=== PATIENT | male | born 1955 | race Caucasian/White ===

== ENCOUNTER 2017-02-06 05:54 | Emergency (ER) | payer OTHER ==
[~2017-02-06] VITALS: Ht 172.7 cm; Wt 118.6 kg
[2017-02-06 06:41] LABS: EOSINOPHIL (%) 8.6 % (0-5); EOSINOPHIL COUNT 0.4 K/uL (0-0.3); HEMATOCRIT 29.9 % (38.0-50.0); IMMATURE GRANULOCYTE (%) 0.2 % (0.0-0.7); INSTRUMENT ABS NEUTROPHIL CT 1.6 K/uL; LYMPHOCYTE COUNT 1.4 K/uL (1.0-2.8); MCH 32.7 PG (29.0-34.0); MCHC 33.8 G/DL (30.0-36.0); MCV 96.8 FL (86-99); MEAN PLAT.VOLUME 12.6 uM^3 (9.0-12.4); MONOCYTE (%) 22.9 % (3-12); NEUTROPHIL (%) 36.5 % (45-76); NEUTROPHIL COUNT 1.6 K/uL (1.8-6.4); PLATELET COUNT 65 K/uL (156-360); RBC DIS.WIDTH-CV 16.8 % (11.8-14.6); RBC DIS.WIDTH-SD 59.1 % (39-53); RED BLOOD COUNT 3.09 M/uL (4.00-5.50); WHITE BLOOD COUNT 4.4 K/uL (4.1-10.2)
[2017-02-06 07:13] LABS: ANION GAP 5 MEQ/L (2-14); CHLORIDE 111 MEQ/L (99-109); MAGNESIUM 1.8 mg/dl (1.3-2.7); SAMPLE HEMOLYSIS CHECK 0; SAMPLE ICTERIC CHECK 1; SAMPLE LIPEMIA CHECK 0; SODIUM 141 MEQ/L (136-147); TOTAL BILIRUBIN 4.1 MG/DL (0.0-1.0)
[2017-02-06 07:18] LABS: ALKALINE PHOSPHATASE 124 IU/L (3-129); GFR ESTIMATE (CALCULATED) > 59 mL/min/; GLUCOSE 115 mg/dL (70-99); UREA NITROGEN (BUN) 13 mg/dL (9-23)
[2017-02-06 07:23] LABS: TROP-I INTERPRETATION NEGATIVE; TROPONIN-I 0.01 ng/mL (0.0-0.30)
[2017-02-06 09:56] VITALS: BP 138/79
== END 2017-02-06 10:09 ==
LOC: EME 05:54 → EDBD 05:54 → EME 05:54
PROVIDERS: Emergency Medicine
DX: K74.60 Unspecified cirrhosis of liver (principal); R60.0 Localized edema; E72.20 Disorder of urea cycle metabolism, unspecified; M54.2 Cervicalgia; W19.XXXA Unspecified fall, initial encounter; Y92.149 Unspecified place in prison as the place of occurrence of the external cause; B19.20 Unspecified viral hepatitis C without hepatic coma; K72.90 Hepatic failure, unspecified without coma; I10 Essential (primary) hypertension; I25.2 Old myocardial infarction; Z95.5 Presence of coronary angioplasty implant and graft; Z87.891 Personal history of nicotine dependence
CPT/HCPCS: 70450; 71010; 72125; 80053; 82140; 83735; 84484; 85025; 93005; 99281; 99285; J1940

== ENCOUNTER 2017-03-18 19:56 | Emergency (ER) | payer OTHER ==
[~2017-03-18] VITALS: Ht 170.2 cm; Wt 123.0 kg
[2017-03-18] MEDS ORDERED: ENSURE LIQUID237 ML PO (20:26)
[2017-03-18] MEDS ORDERED: XIFAXAN550 MG PO (20:27)
[2017-03-18] MEDS ORDERED: [UNRECOGNIZED DRUG - OTHER] TP (20:29)
[2017-03-18] MEDS ORDERED: OMEPRAZOLE40 M1 PO (20:30)
[2017-03-18] MEDS ORDERED: LASIX40 MG PO (20:30)
[2017-03-18] MEDS ORDERED: ENULOSE10 GM/15 M PO (20:30)
[2017-03-18] MEDS ORDERED: FOLIC ACID1 MG PO (20:31)
[2017-03-18] MEDS ORDERED: SPIRONOLACTONE50 MG PO (20:31)
[2017-03-18] MEDS ORDERED: INDERAL10 MG PO (20:32)
[2017-03-18] MEDS ORDERED: ZINC SULFATE220 MG PO (20:32)
[2017-03-18 20:38] LABS: EOSINOPHIL (%) 6.9 % (0-5); EOSINOPHIL COUNT 0.2 K/uL (0-0.3); HEMATOCRIT 28.2 % (38.0-50.0); IMMATURE GRANULOCYTE (%) 0.3 % (0.0-0.7); INSTRUMENT ABS NEUTROPHIL CT 1.2 K/uL; LYMPHOCYTE COUNT 1.3 K/uL (1.0-2.8); MCH 32.6 PG (29.0-34.0); MCHC 33.3 G/DL (30.0-36.0); MCV 97.9 FL (86-99); MEAN PLAT.VOLUME 12.5 uM^3 (9.0-12.4); MONOCYTE (%) 15.6 % (3-12); MONOCYTE COUNT 0.5 K/uL (0-0.8); NEUTROPHIL (%) 36.5 % (45-76); NEUTROPHIL COUNT 1.2 K/uL (1.8-6.4); RBC DIS.WIDTH-SD 64.7 % (39-53); RED BLOOD COUNT 2.88 M/uL (4.00-5.50); WHITE BLOOD COUNT 3.3 K/uL (4.1-10.2)
[2017-03-18 20:39] LABS: PLATELET COUNT 97 K/uL (156-360)
[2017-03-18 20:43] LABS: INTER. NORMALIZED RATIO 1.6; PROTHROMBIN TIME 18.4 SEC (10.2-12.9)
[2017-03-18 20:46] LABS: PTT 39.3 SEC (25-37)
[2017-03-18 20:50] LABS: CHLORIDE 110 mEq/L (99-109); POTASSIUM 3.4 mEq/L (3.7-5.4); SODIUM 140 mEq/L (136-147)
[2017-03-18 20:52] LABS: GLUCOSE 215 mg/dL (70-99)
[2017-03-18 20:53] LABS: SERUM ETHYL ALCOHOL < 10 mg/dL
[2017-03-18 20:54] LABS: ANION GAP 2 MEQ/L (2-14); TOTAL BILIRUBIN 4.7 mg/dL (0.0-1.0)
[2017-03-18 20:56] LABS: ALKALINE PHOSPHATASE 139 IU/L (3-129); GFR ESTIMATE (CALCULATED) > 59 mL/min/; LIPASE 33 U/L (1.0-51.0)
[2017-03-18 20:57] LABS: UREA NITROGEN (BUN) 9 mg/dL (9-23)
[2017-03-18 21:00] LABS: TROP-I INTERPRETATION NEGATIVE; TROPONIN-I < 0.01 ng/mL (0.0-0.30)
[2017-03-19 01:53] VITALS: BP 133/84
[2017-03-19 01:57] LABS: ADD MIUA? YES; BILIRUBIN NEGATIVE; BLOOD NEGATIVE; COLOR AMBER ((YELLOW)); GLUCOSE (STRIP) NEGATIVE; KETONES NEGATIVE; LEUKOCYTES TRACE; NITRITE NEGATIVE; PROTEIN (STRIP) 30
[2017-03-19 02:05] LABS: AMPHETAMINE NEGATIVE (500 ng/mL); BARBITURATES NEGATIVE (200 ng/mL); BENZODIAZEPINES NEGATIVE (150 ng/mL); COCAINE NEGATIVE (150 ng/mL); INTERNAL CONTROLS VALID? YES; METHADONE NEGATIVE (200 ng/mL); METHAMPHETAMINE NEGATIVE (500 ng/mL); OPIATES (MORPHINE) NEGATIVE (100 ng/mL); OXYCODONE NEGATIVE (100 ng/mL); PHENCYCLIDINE NEGATIVE (25 ng/mL); PROPOXYPHENE NEGATIVE (300 ng/mL); THC CANNABINOIDS NEGATIVE (50 ng/mL); TRICYCLIC ANTIDEPRESSANTS NEGATIVE (300 ng/mL)
[2017-03-19 02:14] LABS: RED BLOOD CELLS 0-5 /HPF (0-5)
[2017-03-19 02:15] LABS: BACTERIA 3+ /HPF; CASTS NONE SEEN /LPF; CRYSTALS NONE SEEN; EPITHELIAL CELLS RARE /HPF; MUCUS NONE SEEN /LPF; UCUL ADDED? YES; WHITE BLOOD CELLS 15-20 /HPF (0-5)
== END 2017-03-19 02:09 | disposition short-term general hospital (02) ==
LOC: EME → EDBD 19:56 → EME 03-19 02:09
PROVIDERS: Emergency Medicine
DX: D64.9 Anemia, unspecified (principal); R53.1 Weakness; R20.2 Paresthesia of skin; M54.2 Cervicalgia; W19.XXXA Unspecified fall, initial encounter; Y92.143 Cell of prison as the place of occurrence of the external cause; I10 Essential (primary) hypertension; I25.2 Old myocardial infarction; K72.90 Hepatic failure, unspecified without coma; B19.20 Unspecified viral hepatitis C without hepatic coma; K74.60 Unspecified cirrhosis of liver; I25.10 Atherosclerotic heart disease of native coronary artery without angina pectoris; Z95.5 Presence of coronary angioplasty implant and graft; Z87.891 Personal history of nicotine dependence
CPT/HCPCS: 70450; 70496; 70498; 72125; 80048; 80053; 81003; 82140; 82150; 83690; 84484; 85025; 85610; 85730; 86850; 86900; 86901; 87077; 87086; 87186; 93005; 99281; 99285; G0480

== ENCOUNTER 2017-05-02 21:19 | Emergency (ER) | payer OTHER ==
[~2017-05-02] VITALS: Ht 172.7 cm; Wt 123.0 kg
[~2017-05-02 21:19] MED LIST: ENSURE LIQUID237 ML PO; ENULOSE10 GM/15 M PO; FOLIC ACID1 MG PO; INDERAL10 MG PO; LASIX40 MG PO; OMEPRAZOLE40 M1 PO; SPIRONOLACTONE50 MG PO; XIFAXAN550 MG PO; ZINC SULFATE220 MG PO; [UNRECOGNIZED DRUG - OTHER] TP
[2017-05-02 21:54] LABS: HEMATOCRIT 35.7 % (38.0-50.0); MCH 32.7 PG (29.0-34.0); MCHC 33.6 G/DL (30.0-36.0); MCV 97.3 FL (86-99); PLATELET COUNT 71 K/uL (156-360); RBC DIS.WIDTH-SD 67.9 % (39-53); RED BLOOD COUNT 3.67 M/uL (4.00-5.50); WHITE BLOOD COUNT 4.7 K/uL (4.1-10.2)
[2017-05-02 21:57] LABS: CHLORIDE 111 mEq/L (99-109); POTASSIUM 4.2 mEq/L (3.7-5.4); SODIUM 142 mEq/L (136-147)
[2017-05-02 21:58] LABS: GLUCOSE 118 mg/dL (70-99)
[2017-05-02 22:02] LABS: CREATININE 0.6 mg/dL (0.6-1.3); GFR ESTIMATE (CALCULATED) > 59 mL/min/ (58.99-99999)
[2017-05-02 22:03] LABS: UREA NITROGEN (BUN) 12 mg/dL (9-23)
[2017-05-02 22:11] LABS: BASE EXCESS 2.5 mEq/L (-3 to +3); BICARBONATE 26.3 mEq/L (22-26); COMMENTS - BLOOD GASES C+; DEVICE RA; METHEMOGLOBIN 0.8 % (0-1.5); PCO2 37 mm Hg (35-45); PO2 93 mm Hg (80-100); SITE LR; TOTAL RESP RATE 16 resp/min; pH 7.46 (7.35-7.45)
[2017-05-02 22:20] LABS: INTER. NORMALIZED RATIO 1.7
[2017-05-02 22:23] LABS: PTT 41.9 SEC (25-37)
[2017-05-02 22:34] LABS: TROP-I INTERPRETATION NEGATIVE; TROPONIN-I 0.01 ng/mL (0.0-0.30)
[2017-05-02] MEDS ORDERED: PRILOSEC20 MG PO (22:51)
[2017-05-02] MEDS ORDERED: [UNRECOGNIZED DRUG - OTHER] TP (22:53)
[2017-05-02] MEDS ORDERED: [UNRECOGNIZED DRUG - OTHER] TP (22:53)
[2017-05-02 23:50] LABS: ALBUMIN 2.7 g/dL (3.2-4.8)
[2017-05-02 23:53] LABS: TOTAL PROTEIN 5.2 g/dL (6.4-8.3)
[2017-05-02 23:55] LABS: TOTAL BILIRUBIN 6.5 mg/dL (0.0-1.0)
[2017-05-02 23:56] LABS: ALKALINE PHOSPHATASE 140 IU/L (3-129)
[2017-05-02 23:58] LABS: AST (GOT) 82 IU/L (2-34); DIRECT BILIRUBIN 2.6 mg/dL (0.0-0.3)
[2017-05-02 23:59] LABS: ALT (GPT) 55 IU/L (3-49); LIPASE 29 U/L (1.0-51.0)
[2017-05-03 05:52] VITALS: BP 104/63
== END 2017-05-03 06:14 | disposition designated cancer center or children's hospital, planned readmission (85) ==
LOC: EME 21:19
PROVIDERS: Emergency Medicine
DX: K72.01 Acute and subacute hepatic failure with coma (principal); R65.10 Systemic inflammatory response syndrome (SIRS) of non-infectious origin without acute organ dysfunction; R74.8 Abnormal levels of other serum enzymes; R41.82 Altered mental status, unspecified; T68.XXXA Hypothermia, initial encounter; I51.7 Cardiomegaly; J90 Pleural effusion, not elsewhere classified; R60.0 Localized edema; K72.90 Hepatic failure, unspecified without coma; R94.31 Abnormal electrocardiogram [ECG] [EKG]; I10 Essential (primary) hypertension; K74.60 Unspecified cirrhosis of liver; B19.20 Unspecified viral hepatitis C without hepatic coma; I25.2 Old myocardial infarction; W19.XXXA Unspecified fall, initial encounter; Y92.149 Unspecified place in prison as the place of occurrence of the external cause; Z87.891 Personal history of nicotine dependence; Z96.89 Presence of other specified functional implants; Z95.5 Presence of coronary angioplasty implant and graft; Z91.14 Patient's other noncompliance with medication regimen
CPT/HCPCS: 36600; 70450; 71045; 71250; 72125; 74176; 80048; 80076; 81003; 82140; 82803; 83605; 83690; 84484; 85027; 85610; 85730; 87040; 93005; 99281; 99285; J2543; J3370; J7030

== ENCOUNTER 2017-06-08 10:32 | Emergency (ER) | payer OTHER ==
[~2017-06-08] VITALS: Ht 188 cm; Wt 109.8 kg
[~2017-06-08 10:32] MED LIST changes: +PRILOSEC20 MG PO; +[UNRECOGNIZED DRUG - OTHER] TP
[2017-06-08 11:05] LABS: INTER. NORMALIZED RATIO 1.7
[2017-06-08 11:07] LABS: PTT 39.2 SEC (25-37)
[2017-06-08 11:13] LABS: ALBUMIN 2.6 g/dL (3.2-4.8); CHLORIDE 113 mEq/L (99-109); POTASSIUM 3.8 mEq/L (3.7-5.4); SODIUM 141 mEq/L (136-147)
[2017-06-08 11:15] LABS: GLUCOSE 129 mg/dL (70-99); TOTAL PROTEIN 4.4 g/dL (6.4-8.3)
[2017-06-08 11:17] LABS: BASOPHIL (%) 0.6 % (0-1); EOSINOPHIL (%) 7.8 % (0-5); EOSINOPHIL COUNT 0.3 K/uL (0-0.3); HEMATOCRIT 26.7 % (38.0-50.0); HEMOGLOBIN 9.1 G/DL (12.5-16.6); IMMATURE GRANULOCYTE (%) 0.3 % (0.0-0.7); LYMPHOCYTE (%) 36.9 % (15-42); LYMPHOCYTE COUNT 1.2 K/uL (1.0-2.8); MCH 32.9 PG (29.0-34.0); MCHC 34.1 G/DL (30.0-36.0); MCV 96.4 FL (86-99); MONOCYTE (%) 17.4 % (3-12); MONOCYTE COUNT 0.6 K/uL (0-0.8); NEUTROPHIL COUNT 1.2 K/uL (1.8-6.4); RBC DIS.WIDTH-CV 18.3 % (11.8-14.6); RBC DIS.WIDTH-SD 61.9 % (39-53); RED BLOOD COUNT 2.77 M/uL (4.00-5.50); TOTAL BILIRUBIN 3.9 mg/dL (0.0-1.0); WHITE BLOOD COUNT 3.3 K/uL (4.1-10.2)
[2017-06-08 11:19] LABS: ALKALINE PHOSPHATASE 171 IU/L (3-129); CREATININE 0.6 mg/dL (0.6-1.3); GFR ESTIMATE (CALCULATED) > 59 mL/min/ (58.99-99999)
[2017-06-08 11:20] LABS: AST (GOT) 50 IU/L (2-34); UREA NITROGEN (BUN) 12 mg/dL (9-23)
[2017-06-08 11:22] LABS: ALT (GPT) 29 IU/L (3-49); CREATINE KINASE 158 IU/L (1-294); LIPASE 19 U/L (1.0-51.0); TOTAL CK 158 IU/L (1-294)
[2017-06-08 11:24] LABS: TROP-I INTERPRETATION NEGATIVE; TROPONIN-I 0.02 ng/mL (0.0-0.30)
[2017-06-08 11:28] LABS: CK-MB 5.2 ng/mL (0.0-4.9); CKMB RELATIVE INDEX 3.3 (0.0-3.9)
[2017-06-08 12:12] LABS: PLAT.SUFFICIENCY DECREASED
[2017-06-08 13:52] LABS: PLATELET COUNT 49 K/uL (156-360)
[2017-06-08 15:48] VITALS: BP 138/57
== END 2017-06-08 15:48 | disposition short-term general hospital (02) ==
LOC: EME 10:32
PROVIDERS: Emergency Medicine
DX: K72.90 Hepatic failure, unspecified without coma (principal); R41.82 Altered mental status, unspecified; K74.60 Unspecified cirrhosis of liver; B19.20 Unspecified viral hepatitis C without hepatic coma; I10 Essential (primary) hypertension; I25.2 Old myocardial infarction; Z95.5 Presence of coronary angioplasty implant and graft; Z87.891 Personal history of nicotine dependence
CPT/HCPCS: 70450; 71045; 80047; 80053; 82140; 82550; 82553; 83605; 83690; 84484; 85025; 85610; 85730; 87502; 93005; 99281; 99285

== ENCOUNTER 2017-07-14 15:35 | Inpatient (IN) | payer OTHER ==
[~2017-07-14] VITALS: Ht 172.7 cm; Wt 94.1 kg
[2017-07-14 16:27] LABS: BASOPHIL (%) 0.6 % (0-1); EOSINOPHIL (%) 7.4 % (0-5); EOSINOPHIL COUNT 0.2 K/uL (0-0.3); HEMATOCRIT 27.8 % (38.0-50.0); HEMOGLOBIN 9.6 G/DL (12.5-16.6); LYMPHOCYTE (%) 34.5 % (15-42); LYMPHOCYTE COUNT 1.1 K/uL (1.0-2.8); MCHC 34.5 G/DL (30.0-36.0); MCV 98.6 FL (86-99); MONOCYTE (%) 16.1 % (3-12); MONOCYTE COUNT 0.5 K/uL (0-0.8); NEUTROPHIL (%) 41.4 % (45-76); NEUTROPHIL COUNT 1.3 K/uL (1.8-6.4); PLATELET COUNT 57 K/uL (156-360); RBC DIS.WIDTH-CV 19.8 % (11.8-14.6); RBC DIS.WIDTH-SD 70.8 % (39-53); RED BLOOD COUNT 2.82 M/uL (4.00-5.50); WHITE BLOOD COUNT 3.1 K/uL (4.1-10.2)
[2017-07-14 16:36] LABS: INTER. NORMALIZED RATIO 1.5
[2017-07-14 16:38] LABS: ALBUMIN 2.7 g/dL (3.2-4.8); CHLORIDE 113 mEq/L (99-109); MAGNESIUM 1.6 mg/dL (1.3-2.7); POTASSIUM 4.3 mEq/L (3.7-5.4); SODIUM 142 mEq/L (136-147)
[2017-07-14 16:39] LABS: PTT 38.7 SEC (25-37)
[2017-07-14 16:40] LABS: GLUCOSE 124 mg/dL (70-99); TOTAL PROTEIN 4.9 g/dL (6.4-8.3)
[2017-07-14 16:42] LABS: TOTAL BILIRUBIN 4.1 mg/dL (0.0-1.0)
[2017-07-14 16:43] LABS: SERUM ETHYL ALCOHOL < 10 mg/dL
[2017-07-14 16:44] LABS: CREATININE 0.7 mg/dL (0.6-1.3); GFR ESTIMATE (CALCULATED) > 59 mL/min/ (58.99-99999)
[2017-07-14 16:45] LABS: ALKALINE PHOSPHATASE 185 IU/L (3-129); AST (GOT) 59 IU/L (2-34)
[2017-07-14 16:46] LABS: UREA NITROGEN (BUN) 9 mg/dL (9-23)
[2017-07-14 16:47] LABS: SALICYLATE < 5.0 MG/DL (15-30)
[2017-07-14 16:48] LABS: ACETAMINOPHEN (TYLENOL) < 10 mcg/mL (10-30); ALT (GPT) 32 IU/L (3-49); LIPASE 24 U/L (1.0-51.0)
[2017-07-14 16:49] LABS: CKMB RELATIVE INDEX 3.3 (0.0-3.9); CREATINE KINASE 182 IU/L (1-294); TOTAL CK 182 IU/L (1-294); TROP-I INTERPRETATION NEGATIVE; TROPONIN-I < 0.01 ng/mL (0.0-0.30)
[2017-07-14] MEDS ORDERED: MAGNESIUM400 M1 PO (17:30)
[2017-07-14] MEDS ORDERED: DAILY VITAMIN1 EAC4 PO (17:30)
[2017-07-14 17:55] LABS: APPEARANCE SL.HAZY ((CLEAR)); BILIRUBIN NEGATIVE; BLOOD NEGATIVE; COLOR YELLOW ((YELLOW)); GLUCOSE (STRIP) NEGATIVE; KETONES NEGATIVE; LEUKOCYTES TRACE; NITRITE NEGATIVE; PROTEIN (STRIP) NEGATIVE; UROBILINOGEN 0.2 MG/DL (0.2-1.0)
[2017-07-14 18:03] LABS: BACTERIA RARE /HPF; EPITHELIAL CELLS NONE SEEN /HPF; MUCUS TRACE /LPF; RED BLOOD CELLS 0-5 /HPF (0-5); UCUL ADDED? YES
[2017-07-14 22:46] VITALS: BP 151/67
[2017-07-15] VITALS: BP 147/63
[2017-07-15 04:00] VITALS: BP 140/62
[2017-07-15 06:43] LABS: INTER. NORMALIZED RATIO 1.7
[2017-07-15 07:02] LABS: ALBUMIN 2.4 G/DL (3.2-4.8); ALKALINE PHOSPHATASE 118 IU/L (3-129); ALT (GPT) 23 IU/L (3-49); AST (GOT) 54 IU/L (2-34); CHLORIDE 113 MEQ/L (99-109); CREATININE 0.5 MG/DL (0.6-1.3); GFR ESTIMATE (CALCULATED) > 59 mL/min/ (58.99-99999); GLUCOSE 155 mg/dL (70-99); POTASSIUM 4.1 MEQ/L (3.7-5.4); SODIUM 141 MEQ/L (136-147); TOTAL BILIRUBIN 3.8 MG/DL (0.0-1.0); TOTAL PROTEIN 4.1 G/DL (6.4-8.3); UREA NITROGEN (BUN) 9 mg/dL (9-23)
[2017-07-15 07:04] LABS: HEMATOCRIT 25.7 % (38.0-50.0); HEMOGLOBIN 8.6 G/DL (12.5-16.6); MCH 33.2 PG (29.0-34.0); MCHC 33.5 G/DL (30.0-36.0); MCV 99.2 FL (86-99); PLATELET COUNT 52 K/uL (156-360); RBC DIS.WIDTH-CV 20.1 % (11.8-14.6); RED BLOOD COUNT 2.59 M/uL (4.00-5.50); WHITE BLOOD COUNT 3.1 K/uL (4.1-10.2)
[2017-07-15 07:50] VITALS: BP 116/60
[2017-07-15 12:20] VITALS: BP 144/67
[2017-07-15 15:27] VITALS: BP 127/82
[2017-07-15 19:55] VITALS: BP 164/72
[2017-07-16] VITALS (7 sets, daily range): BP systolic 126–154; BP diastolic 59–72
[2017-07-16 06:32] LABS: HEMATOCRIT 25.5 % (38.0-50.0); HEMOGLOBIN 8.6 G/DL (12.5-16.6); MCH 33.5 PG (29.0-34.0); MCHC 33.7 G/DL (30.0-36.0); MCV 99.2 FL (86-99); PLATELET COUNT 59 K/uL (156-360); RBC DIS.WIDTH-CV 19.7 % (11.8-14.6); RBC DIS.WIDTH-SD 70.9 % (39-53); RED BLOOD COUNT 2.57 M/uL (4.00-5.50); WHITE BLOOD COUNT 3.8 K/uL (4.1-10.2)
[2017-07-17 04:17] VITALS: BP 131/68
[2017-07-17 07:21] VITALS: BP 120/67
[2017-07-17 16:22] VITALS: BP 138/70
[2017-07-18] VITALS: BP 129/63
[2017-07-18 07:15] VITALS: BP 131/62
[2017-07-18 10:06] VITALS: BP 133/75
[2017-07-18] MEDS ORDERED: AMOX TR-K CLV1 EAC4 PO (11:17)
== END 2017-07-18 13:06 | DRG 441 ==
LOC: EME 15:35 → EDOF 17:36 → 5SOUTH 17:36 → ENRESERV 17:41 → 5SOUTH 22:20
PROVIDERS: Emergency Medicine; Internal Medicine; Physician Assistant Medical
DX: K72.10 Chronic hepatic failure without coma (principal); R00.1 Bradycardia, unspecified; N39.0 Urinary tract infection, site not specified; G93.41 Metabolic encephalopathy; B95.2 Enterococcus as the cause of diseases classified elsewhere; B96.89 Other specified bacterial agents as the cause of diseases classified elsewhere; D69.6 Thrombocytopenia, unspecified; K76.9 Liver disease, unspecified; D63.8 Anemia in other chronic diseases classified elsewhere; D69.59 Other secondary thrombocytopenia; E66.01 Morbid (severe) obesity due to excess calories; I25.10 Atherosclerotic heart disease of native coronary artery without angina pectoris; I10 Essential (primary) hypertension; G89.29 Other chronic pain; R27.8 Other lack of coordination; K74.69 Other cirrhosis of liver; Z95.5 Presence of coronary angioplasty implant and graft; R32 Unspecified urinary incontinence; K21.9 Gastro-esophageal reflux disease without esophagitis; E83.51 Hypocalcemia; E87.8 Other disorders of electrolyte and fluid balance, not elsewhere classified; Z91.19 Patient's noncompliance with other medical treatment and regimen; Z87.891 Personal history of nicotine dependence; Z91.14 Patient's other noncompliance with medication regimen; I25.2 Old myocardial infarction; Z68.31 Body mass index [BMI] 31.0-31.9, adult; E88.09 Other disorders of plasma-protein metabolism, not elsewhere classified; B19.20 Unspecified viral hepatitis C without hepatic coma; D61.818 Other pancytopenia
CPT/HCPCS: 71045; 76705; 80053; 81003; 82140; 82550; 82553; 83605; 83690; 83735; 84484; 85025; 85027; 85610; 85730; 87077; 87086; 87186; 93005; 99281; 99285; G0480; J2270; J2405

== ENCOUNTER 2017-08-06 15:49 | Emergency (ER) | payer OTHER ==
[~2017-08-06] VITALS: Ht 172.7 cm; Wt 84.1 kg
[~2017-08-06 15:49] MED LIST changes: +AMOX TR-K CLV1 EAC4 PO; +DAILY VITAMIN1 EAC4 PO; +MAGNESIUM400 M1 PO
[2017-08-06 16:24] LABS: HEMATOCRIT 24.9 % (38.0-50.0); HEMOGLOBIN 8.3 G/DL (12.5-16.6); MCH 33.7 PG (29.0-34.0); MCHC 33.3 G/DL (30.0-36.0); MCV 101.2 FL (86-99); PLATELET COUNT 59 K/uL (156-360); RBC DIS.WIDTH-CV 17.8 % (11.8-14.6); RBC DIS.WIDTH-SD 66.5 % (39-53); RED BLOOD COUNT 2.46 M/uL (4.00-5.50); WHITE BLOOD COUNT 3.7 K/uL (4.1-10.2)
[2017-08-06 16:31] LABS: INTER. NORMALIZED RATIO 1.6
[2017-08-06 16:34] LABS: PTT 42.5 SEC (25-37)
[2017-08-06 16:34] LABS: ALBUMIN 2.5 g/dL (3.2-4.8); CHLORIDE 113 mEq/L (99-109); POTASSIUM 4.4 mEq/L (3.7-5.4); SODIUM 142 mEq/L (136-147)
[2017-08-06 16:37] LABS: GLUCOSE 139 mg/dL (70-99); TOTAL PROTEIN 4.5 g/dL (6.4-8.3)
[2017-08-06 16:39] LABS: TOTAL BILIRUBIN 3.1 mg/dL (0.0-1.0)
[2017-08-06 16:40] LABS: ALKALINE PHOSPHATASE 178 IU/L (3-129); CREATININE 0.6 mg/dL (0.6-1.3); GFR ESTIMATE (CALCULATED) > 59 mL/min/ (58.99-99999)
[2017-08-06 16:41] LABS: UREA NITROGEN (BUN) 11 mg/dL (9-23)
[2017-08-06 16:42] LABS: AST (GOT) 51 IU/L (2-34)
[2017-08-06 16:43] LABS: ALT (GPT) 32 IU/L (3-49)
[2017-08-06 17:16] LABS: APPEARANCE CLEAR ((CLEAR)); BILIRUBIN NEGATIVE; BLOOD NEGATIVE; COLOR YELLOW ((YELLOW)); GLUCOSE (STRIP) NEGATIVE; KETONES NEGATIVE; LEUKOCYTES NEGATIVE; NITRITE NEGATIVE; PROTEIN (STRIP) NEGATIVE; SPECIFIC GRAVITY 1.008 (1.000-1.030); UCUL ADDED? NO
[2017-08-06 19:22] VITALS: BP 115/77
== END 2017-08-06 19:25 | disposition short-term general hospital (02) ==
LOC: EME 15:49
PROVIDERS: Emergency Medicine
DX: R79.89 Other specified abnormal findings of blood chemistry (principal); K72.90 Hepatic failure, unspecified without coma; B19.20 Unspecified viral hepatitis C without hepatic coma; K74.60 Unspecified cirrhosis of liver; D64.9 Anemia, unspecified; I10 Essential (primary) hypertension; G89.29 Other chronic pain; I25.2 Old myocardial infarction; Z95.5 Presence of coronary angioplasty implant and graft; Z87.891 Personal history of nicotine dependence
CPT/HCPCS: 71045; 80053; 81003; 82140; 85027; 85610; 85730; 93005; 99281; 99285

== ENCOUNTER 2017-08-15 19:17 | Emergency (ER) | payer OTHER ==
[~2017-08-15] VITALS: Ht 172.7 cm; Wt 104.8 kg
[2017-08-15 20:46] LABS: HEMATOCRIT 25.9 % (38.0-50.0); HEMOGLOBIN 8.7 G/DL (12.5-16.6); MCH 33.6 PG (29.0-34.0); MCHC 33.6 G/DL (30.0-36.0); PLATELET COUNT 65 K/uL (156-360); RBC DIS.WIDTH-CV 17.1 % (11.8-14.6); RBC DIS.WIDTH-SD 61.5 % (39-53); RED BLOOD COUNT 2.59 M/uL (4.00-5.50); WHITE BLOOD COUNT 4.3 K/uL (4.1-10.2)
[2017-08-15 20:57] LABS: ALBUMIN 2.4 g/dL (3.2-4.8); CHLORIDE 108 mEq/L (99-109); POTASSIUM 3.5 mEq/L (3.7-5.4); SODIUM 139 mEq/L (136-147)
[2017-08-15 20:59] LABS: GLUCOSE 123 mg/dL (70-99)
[2017-08-15 21:00] LABS: TOTAL PROTEIN 4.3 g/dL (6.4-8.3)
[2017-08-15 21:01] LABS: TOTAL BILIRUBIN 3.3 mg/dL (0.0-1.0)
[2017-08-15 21:02] LABS: SERUM ETHYL ALCOHOL < 10 mg/dL
[2017-08-15 21:03] LABS: ALKALINE PHOSPHATASE 172 IU/L (3-129); CREATININE 0.6 mg/dL (0.6-1.3); GFR ESTIMATE (CALCULATED) > 59 mL/min/ (58.99-99999)
[2017-08-15 21:04] LABS: UREA NITROGEN (BUN) 11 mg/dL (9-23)
[2017-08-15 21:05] LABS: AST (GOT) 49 IU/L (2-34); DIRECT BILIRUBIN 1.6 mg/dL (0.0-0.3)
[2017-08-15 21:06] LABS: ALT (GPT) 32 IU/L (3-49); LIPASE 42 U/L (1.0-51.0)
[2017-08-15 22:43] LABS: APPEARANCE CLEAR ((CLEAR)); BILIRUBIN NEGATIVE; BLOOD SMALL; COLOR YELLOW ((YELLOW)); GLUCOSE (STRIP) NEGATIVE; KETONES NEGATIVE; LEUKOCYTES MODERATE; NITRITE NEGATIVE; PROTEIN (STRIP) NEGATIVE; SPECIFIC GRAVITY 1.011 (1.000-1.030)
[2017-08-15 22:50] LABS: BACTERIA 1+ /HPF; EPITHELIAL CELLS RARE /HPF; MUCUS TRACE /LPF; WHITE BLOOD CELLS 30-40 /HPF (0-5)
[2017-08-15] MEDS ORDERED: BACTRIM,SEPT1 TABLET PO (23:38)
[2017-08-15 23:54] VITALS: BP 111/51
[2017-08-16 01:52] LABS: AMPHETAMINE NEGATIVE (500 ng/mL); BARBITURATES NEGATIVE (200 ng/mL); BENZODIAZEPINES NEGATIVE (150 ng/mL); BUPRENORPHINE NEGATIVE (10 ng/mL); COCAINE NEGATIVE (150 ng/mL); METHADONE NEGATIVE (200 ng/mL); METHAMPHETAMINE NEGATIVE (500 ng/mL); OPIATES (MORPHINE) NEGATIVE (100 ng/mL); OXYCODONE NEGATIVE (100 ng/mL); PHENCYCLIDINE NEGATIVE (25 ng/mL); PROPOXYPHENE NEGATIVE (300 ng/mL); THC CANNABINOIDS NEGATIVE (50 ng/mL); TRICYCLIC ANTIDEPRESSANTS NEGATIVE (300 ng/mL)
== END 2017-08-15 23:56 ==
LOC: EME 19:17
PROVIDERS: Emergency Medicine
DX: K72.90 Hepatic failure, unspecified without coma (principal); K74.60 Unspecified cirrhosis of liver; B19.20 Unspecified viral hepatitis C without hepatic coma; N39.0 Urinary tract infection, site not specified; I10 Essential (primary) hypertension; I25.2 Old myocardial infarction; Z95.5 Presence of coronary angioplasty implant and graft; Z87.891 Personal history of nicotine dependence; Z91.14 Patient's other noncompliance with medication regimen
CPT/HCPCS: 71045; 80053; 81003; 82140; 82248; 83690; 85027; 93005; 99281; 99285; G0480; J2405; J7030

== ENCOUNTER 2017-11-05 17:18 | Emergency (ER) | payer OTHER ==
[~2017-11-05] VITALS: Ht 177.8 cm; Wt 90.0 kg
[~2017-11-05 17:18] MED LIST changes: +BACTRIM,SEPT1 TABLET PO
[2017-11-05 18:04] LABS: BASOPHIL (%) 0.2 % (0-1); EOSINOPHIL (%) 4.6 % (0-5); EOSINOPHIL COUNT 0.2 K/uL (0-0.3); HEMATOCRIT 30.5 % (38.0-50.0); HEMOGLOBIN 10.7 G/DL (12.5-16.6); IMMATURE GRANULOCYTE (%) 0.2 % (0.0-0.7); LYMPHOCYTE (%) 22.3 % (15-42); LYMPHOCYTE COUNT 0.9 K/uL (1.0-2.8); MCH 33.6 PG (29.0-34.0); MCHC 35.1 G/DL (30.0-36.0); MCV 95.9 FL (86-99); MONOCYTE (%) 14.6 % (3-12); MONOCYTE COUNT 0.6 K/uL (0-0.8); NEUTROPHIL (%) 58.1 % (45-76); NEUTROPHIL COUNT 2.4 K/uL (1.8-6.4); PLATELET COUNT 58 K/uL (156-360); RBC DIS.WIDTH-CV 16.5 % (11.8-14.6); RBC DIS.WIDTH-SD 58.4 % (39-53); RED BLOOD COUNT 3.18 M/uL (4.00-5.50); WHITE BLOOD COUNT 4.1 K/uL (4.1-10.2)
[2017-11-05 18:14] LABS: ALBUMIN 2.8 g/dL (3.2-4.8); CHLORIDE 103 mEq/L (99-109); POTASSIUM 3.6 mEq/L (3.7-5.4); SODIUM 139 mEq/L (136-147)
[2017-11-05 18:17] LABS: GLUCOSE 158 mg/dL (70-99); TOTAL PROTEIN 5.2 g/dL (6.4-8.3)
[2017-11-05 18:18] LABS: TOTAL BILIRUBIN 4.3 mg/dL (0.0-1.0)
[2017-11-05 18:20] LABS: ALKALINE PHOSPHATASE 129 IU/L (3-129); CREATININE 0.7 mg/dL (0.6-1.3); GFR ESTIMATE (CALCULATED) > 59 mL/min/ (58.99-99999)
[2017-11-05 18:21] LABS: UREA NITROGEN (BUN) 17 mg/dL (9-23)
[2017-11-05 18:22] LABS: AST (GOT) 58 IU/L (2-34); DIRECT BILIRUBIN 1.7 mg/dL (0.0-0.3)
[2017-11-05 18:23] LABS: ACETAMINOPHEN (TYLENOL) < 10 mcg/mL (10-30); ALT (GPT) 33 IU/L (3-49)
[2017-11-05 18:24] LABS: LIPASE 53 U/L (1.0-51.0); TROP-I INTERPRETATION NEGATIVE; TROPONIN-I 0.01 ng/mL (0.0-0.30)
[2017-11-05 18:25] LABS: INTER. NORMALIZED RATIO 1.5
[2017-11-05 18:27] LABS: PTT 32.6 SEC (25-37)
[2017-11-05 21:36] VITALS: BP 154/62
== END 2017-11-05 21:36 | disposition home or self-care (01) ==
LOC: EME 17:18
PROVIDERS: Emergency Medicine
DX: R10.31 Right lower quadrant pain (principal); K72.90 Hepatic failure, unspecified without coma; K74.60 Unspecified cirrhosis of liver; I51.7 Cardiomegaly; R16.1 Splenomegaly, not elsewhere classified; N28.1 Cyst of kidney, acquired; Z96.89 Presence of other specified functional implants
CPT/HCPCS: 74177; 80048; 80076; 81003; 82140; 83605; 83690; 84484; 85025 91; 85610; 85730; 99281; 99285; G0480; J1200; J2405; J2765; J7030

== ENCOUNTER 2017-11-12 15:49 | Emergency (ER) | payer OTHER ==
[~2017-11-12] VITALS: Ht 170.2 cm; Wt 100.0 kg
[2017-11-12 16:56] LABS: BASOPHIL (%) 0.2 % (0-1); EOSINOPHIL (%) 2.6 % (0-5); EOSINOPHIL COUNT 0.1 K/uL (0-0.3); HEMATOCRIT 32.2 % (38.0-50.0); HEMOGLOBIN 11.1 G/DL (12.5-16.6); IMMATURE GRANULOCYTE (%) 0.2 % (0.0-0.7); LYMPHOCYTE (%) 21.5 % (15-42); LYMPHOCYTE COUNT 0.9 K/uL (1.0-2.8); MCH 33.2 PG (29.0-34.0); MCHC 34.5 G/DL (30.0-36.0); MCV 96.4 FL (86-99); MONOCYTE COUNT 0.6 K/uL (0-0.8); NEUTROPHIL (%) 62.5 % (45-76); NEUTROPHIL COUNT 2.7 K/uL (1.8-6.4); RBC DIS.WIDTH-CV 16.7 % (11.8-14.6); RBC DIS.WIDTH-SD 59.2 % (39-53); RED BLOOD COUNT 3.34 M/uL (4.00-5.50); WHITE BLOOD COUNT 4.2 K/uL (4.1-10.2)
[2017-11-12 17:02] LABS: PLATELET COUNT 76 K/uL (156-360)
[2017-11-12 17:22] LABS: CHLORIDE 105 mEq/L (99-109); POTASSIUM 4.3 mEq/L (3.7-5.4); SODIUM 143 mEq/L (136-147)
[2017-11-12 17:24] LABS: GLUCOSE 144 mg/dL (70-99); TOTAL PROTEIN 5.4 g/dL (6.4-8.3)
[2017-11-12 17:27] LABS: ALKALINE PHOSPHATASE 133 IU/L (3-129)
[2017-11-12 17:28] LABS: CREATININE 0.8 mg/dL (0.6-1.3); GFR ESTIMATE (CALCULATED) > 59 mL/min/ (58.99-99999)
[2017-11-12 17:29] LABS: AST (GOT) 53 IU/L (2-34); UREA NITROGEN (BUN) 20 mg/dL (9-23)
[2017-11-12 17:30] LABS: ALT (GPT) 30 IU/L (3-49)
[2017-11-12 17:31] LABS: LIPASE 11 U/L (1.0-51.0)
[2017-11-12 17:34] LABS: TROP-I INTERPRETATION NEGATIVE; TROPONIN-I < 0.01 ng/mL (0.0-0.30)
[2017-11-12 19:55] LABS: APPEARANCE CLEAR ((CLEAR)); BILIRUBIN NEGATIVE; BLOOD NEGATIVE; COLOR AMBER ((YELLOW)); GLUCOSE (STRIP) NEGATIVE; KETONES NEGATIVE; LEUKOCYTES TRACE; NITRITE NEGATIVE; PROTEIN (STRIP) 30; SPECIFIC GRAVITY 1.035 (1.000-1.030)
[2017-11-12 20:08] VITALS: BP 179/81
[2017-11-12 20:20] LABS: BACTERIA RARE /HPF; EPITHELIAL CELLS RARE /HPF; MUCUS 2+ /LPF; UCUL ADDED? YES; WHITE BLOOD CELLS 20-30 /HPF (0-5)
== END 2017-11-12 20:28 ==
LOC: EME 15:49
PROVIDERS: Emergency Medicine
DX: R10.84 Generalized abdominal pain (principal); G89.29 Other chronic pain; K74.60 Unspecified cirrhosis of liver; I10 Essential (primary) hypertension; I25.2 Old myocardial infarction; B19.20 Unspecified viral hepatitis C without hepatic coma; Z95.5 Presence of coronary angioplasty implant and graft; Z87.891 Personal history of nicotine dependence; Z90.49 Acquired absence of other specified parts of digestive tract
CPT/HCPCS: 71045; 74177; 80053; 81003; 82140; 83690; 84484; 85025; 87077; 87086; 87186; 93005; J2405; J3010; J7040

== ENCOUNTER 2017-11-18 16:46 | Emergency (ER) | payer OTHER ==
[~2017-11-18] VITALS: Ht 170.2 cm; Wt 106.7 kg
[2017-11-18 17:18] LABS: HEMATOCRIT 30.3 % (38.0-50.0); HEMOGLOBIN 10.7 G/DL (12.5-16.6); MCH 33.2 PG (29.0-34.0); MCHC 35.3 G/DL (30.0-36.0); MCV 94.1 FL (86-99); RBC DIS.WIDTH-CV 16.5 % (11.8-14.6); RBC DIS.WIDTH-SD 56.5 % (39-53); RED BLOOD COUNT 3.22 M/uL (4.00-5.50); WHITE BLOOD COUNT 4.3 K/uL (4.1-10.2)
[2017-11-18 17:25] LABS: INTER. NORMALIZED RATIO 1.6
[2017-11-18 17:27] LABS: ALBUMIN 2.9 g/dL (3.2-4.8); CHLORIDE 104 mEq/L (99-109); POTASSIUM 3.7 mEq/L (3.7-5.4); SODIUM 141 mEq/L (136-147)
[2017-11-18 17:30] LABS: GLUCOSE 124 mg/dL (70-99); TOTAL PROTEIN 5.3 g/dL (6.4-8.3)
[2017-11-18 17:31] LABS: TOTAL BILIRUBIN 4.2 mg/dL (0.0-1.0)
[2017-11-18 17:33] LABS: ALKALINE PHOSPHATASE 136 IU/L (3-129); CREATININE 0.9 mg/dL (0.6-1.3); GFR ESTIMATE (CALCULATED) > 59 mL/min/ (58.99-99999)
[2017-11-18 17:34] LABS: UREA NITROGEN (BUN) 16 mg/dL (9-23)
[2017-11-18 17:35] LABS: AST (GOT) 46 IU/L (2-34)
[2017-11-18 17:36] LABS: ALT (GPT) 27 IU/L (3-49)
[2017-11-18 17:37] LABS: LIPASE 31 U/L (1.0-51.0)
[2017-11-18 17:50] LABS: BASOPHIL (%) 0.5 % (0-1); EOSINOPHIL (%) 8.4 % (0-5); EOSINOPHIL COUNT 0.4 K/uL (0-0.3); HEMATOLOGY COMMENT 1 SN; IMMATURE GRANULOCYTE (%) 0.2 % (0.0-0.7); LYMPHOCYTE (%) 25.5 % (15-42); LYMPHOCYTE COUNT 1.1 K/uL (1.0-2.8); MONOCYTE (%) 17.1 % (3-12); MONOCYTE COUNT 0.7 K/uL (0-0.8); NEUTROPHIL (%) 48.3 % (45-76); NEUTROPHIL COUNT 2.1 K/uL (1.8-6.4); PLAT.SUFFICIENCY DECREASED; PLATELET COUNT UNABLE TO REPORT K/uL (156-360)
[2017-11-18] MEDS ORDERED: PROTONIX40 MG PO (19:53)
[2017-11-18 20:02] VITALS: BP 144/74
== END 2017-11-18 20:40 ==
LOC: EME 16:46
PROVIDERS: Emergency Medicine
DX: K25.9 Gastric ulcer, unspecified as acute or chronic, without hemorrhage or perforation (principal); R19.7 Diarrhea, unspecified; R11.2 Nausea with vomiting, unspecified; R06.02 Shortness of breath; K74.60 Unspecified cirrhosis of liver; R16.1 Splenomegaly, not elsewhere classified; N20.0 Calculus of kidney; I10 Essential (primary) hypertension; I25.2 Old myocardial infarction; Z95.5 Presence of coronary angioplasty implant and graft; Z86.19 Personal history of other infectious and parasitic diseases; Z87.891 Personal history of nicotine dependence
CPT/HCPCS: 71045; 74177; 80053; 83690; 85025; 85610; 99281; 99285; C9113; J2270; J2405; J7030

== ENCOUNTER 2017-12-06 16:21 | Emergency (ER) | payer OTHER ==
[~2017-12-06] VITALS: Ht 180.3 cm; Wt 101.8 kg
[~2017-12-06 16:21] MED LIST changes: +PROTONIX40 MG PO
[2017-12-06 17:23] LABS: INTER. NORMALIZED RATIO 1.6
[2017-12-06 17:31] LABS: ALBUMIN 2.9 g/dL (3.2-4.8); CHLORIDE 107 mEq/L (99-109); POTASSIUM 3.9 mEq/L (3.7-5.4); SODIUM 140 mEq/L (136-147)
[2017-12-06 17:33] LABS: GLUCOSE 138 mg/dL (70-99); TOTAL PROTEIN 5.6 g/dL (6.4-8.3)
[2017-12-06 17:37] LABS: ALKALINE PHOSPHATASE 129 IU/L (3-129); CREATININE 0.7 mg/dL (0.6-1.3); GFR ESTIMATE (CALCULATED) > 59 mL/min/ (58.99-99999)
[2017-12-06 17:38] LABS: UREA NITROGEN (BUN) 12 mg/dL (9-23)
[2017-12-06 17:39] LABS: AST (GOT) 55 IU/L (2-34)
[2017-12-06 17:40] LABS: ALT (GPT) 40 IU/L (3-49)
[2017-12-06 17:43] LABS: TROP-I INTERPRETATION NEGATIVE; TROPONIN-I < 0.01 ng/mL (0.0-0.30)
[2017-12-06 17:51] LABS: HEMATOCRIT 24.4 % (38.0-50.0); MCHC 35.7 G/DL (30.0-36.0); NRBC (%) 0.6 /100 WBC (0-0); RBC DIS.WIDTH-CV 15.2 % (11.8-14.6); RBC DIS.WIDTH-SD 49.9 % (39-53); RED BLOOD COUNT 2.72 M/uL (4.00-5.50); WHITE BLOOD COUNT 3.5 K/uL (4.1-10.2)
[2017-12-06 18:00] LABS: HEMOGLOBIN 8.7 G/DL (12.5-16.6); MCV 89.7 FL (86-99)
[2017-12-06 18:46] LABS: ANISOCYTOSIS 1+; BASOPHIL (%) 0.3 % (0-1); EOSINOPHIL COUNT 0.1 K/uL (0-0.3); IMMATURE GRANULOCYTE (%) 0.8 % (0.0-0.7); LYMPHOCYTE (%) 32.6 % (15-42); LYMPHOCYTE COUNT 1.2 K/uL (1.0-2.8); MONOCYTE (%) 11.6 % (3-12); MONOCYTE COUNT 0.4 K/uL (0-0.8); NEUTROPHIL (%) 50.7 % (45-76); NEUTROPHIL COUNT 1.8 K/uL (1.8-6.4); PLAT.SUFFICIENCY VERY DECREASED; POIKILOCYTOSIS 3+; SCHISTOCYTES 1+; TEAR DROP CELLS 1+
[2017-12-06 18:48] LABS: PLATELET COUNT 40 K/uL (156-360)
[2017-12-06 20:30] LABS: APPEARANCE CLEAR ((CLEAR)); BILIRUBIN NEGATIVE; BLOOD NEGATIVE; COLOR YELLOW ((YELLOW)); GLUCOSE (STRIP) NEGATIVE; KETONES 5; LEUKOCYTES NEGATIVE; NITRITE NEGATIVE; PROTEIN (STRIP) NEGATIVE; SPECIFIC GRAVITY 1.019 (1.000-1.030); UCUL ADDED? NO
[2017-12-06 20:53] LABS: AMPHETAMINE NEGATIVE (500 ng/mL); BARBITURATES NEGATIVE (200 ng/mL); BENZODIAZEPINES NEGATIVE (150 ng/mL); BUPRENORPHINE NEGATIVE (10 ng/mL); COCAINE NEGATIVE (150 ng/mL); METHADONE NEGATIVE (200 ng/mL); METHAMPHETAMINE NEGATIVE (500 ng/mL); OPIATES (MORPHINE) NEGATIVE (100 ng/mL); OXYCODONE NEGATIVE (100 ng/mL); PHENCYCLIDINE NEGATIVE (25 ng/mL); PROPOXYPHENE NEGATIVE (300 ng/mL); THC CANNABINOIDS NEGATIVE (50 ng/mL); TRICYCLIC ANTIDEPRESSANTS NEGATIVE (300 ng/mL)
[2017-12-06 21:12] VITALS: BP 163/70
== END 2017-12-06 21:22 | disposition short-term general hospital (02) ==
LOC: EME 16:21
PROVIDERS: Emergency Medicine
DX: K72.90 Hepatic failure, unspecified without coma (principal); E72.20 Disorder of urea cycle metabolism, unspecified; Z91.14 Patient's other noncompliance with medication regimen; R41.82 Altered mental status, unspecified; R94.31 Abnormal electrocardiogram [ECG] [EKG]; I10 Essential (primary) hypertension; I25.2 Old myocardial infarction; Z95.5 Presence of coronary angioplasty implant and graft; Z87.891 Personal history of nicotine dependence
CPT/HCPCS: 80053; 81003; 82140; 84484; 85025; 85610; 93005; 99281; 99285